=== PATIENT | female | born 1965 | race Caucasian/White ===

== ENCOUNTER 2021-01-06 06:11 | Day surgery (SDC) | payer OTHER, SELFPAY ==
[2020-12-31 09:33] VITALS: BMI 25.4
--- NOTE | 2021-01-03 08:27 | MHC.SHP ---
Pre-Procedural Eval Section A The patient is an INPATIENT: No The History & Physical has been completed within 30 days and I have reviewed it.: Yes Section B Chief Complaint: Cataract Right Eye Allergies: Allergies Allergy/AdvReac Type Severity Reaction Status Date / Time dulaglutide [From Trulicity] Allergy Diarrhea Verified 12/31/20 09:46 meperidine [From Demerol] Allergy Rash Verified 12/31/20 09:46 Plan Diagnosis/Plan: Unchanged I have reviewed the history and physical and performed a pertinent physical examination on my patient. No changes have occurred unless specified.
--- NOTE | 2021-01-03 09:30 | P.CONAN_ITS ---
Documented by User: Shruti Carranza 01/03/21 09:31 HPI - Anesthesia Eval Consult details Narrative: 55yo F for Cataract Extraction IOL Insertion, Right PCP cleared No previous cataract PMFSH Past Medical History Medical History Diabetes TIERNEY (dyspnea on exertion) Elevated cholesterol GERD (gastroesophageal reflux disease) HTN (hypertension) PONV (postoperative nausea and vomiting) Surgical History Surgical History History of Hx of appendectomy Hx of tonsillectomy Hx of tubal ligation Social History Social History Smoking Status: Never smoker Use of substances other than those prescribed or required for medical reasons: No Advance Directives: No Advance Directives Information Provided: No Advance Directives on File: No Meds Allergies Allergy/AdvReac Type Severity Reaction Status Date / Time dulaglutide [From Trulicity] Allergy Diarrhea Verified 12/31/20 09:46 meperidine [From Demerol] Allergy Rash Verified 12/31/20 09:46 Home Medications Medication Instructions Recorded Confirmed Type amlodipine 10 mg PO DAILY 12/31/20 12/31/20 History carvedilol [Coreg] 3.125 mg PO BID 12/31/20 12/31/20 History empagliflozin [Jardiance] 25 mg PO DAILY 12/31/20 12/31/20 History ezetimibe 10 mg PO DAILY 12/31/20 12/31/20 History insulin glargine [Lantus Solostar 32 unit SUBCUT QPM 12/31/20 12/31/20 History U-100 Insulin] lisinopril 40 mg PO DAILY 12/31/20 12/31/20 History omeprazole 20 mg PO DAILY 12/31/20 12/31/20 History rosuvastatin 40 mg PO DAILY 12/31/20 12/31/20 History sitagliptin [Januvia] 100 mg PO DAILY 12/31/20 12/31/20 History Exam Exam Date and Time: January 03, 2021 0930 Height,Weight and Vital Signs: Height 4 ft 11 in Weight 57.153 kg Assessment and Plan Assessment Anesthesia Assessment: Chart Reviewed Documented by User: Gita Gonzalez 01/06/21 07:13 [facility] Past Medical History Medical History Diabetes TIERNEY (dyspnea on exertion) Elevated cholesterol GERD (gastroesophageal reflux disease) HTN (hypertension) PONV (postoperative nausea and vomiting) Surgical History Surgical History History of Hx of appendectomy Hx of tonsillectomy Hx of tubal ligation Social History Social History Smoking Status: Never smoker Use of substances other than those prescribed or required for medical reasons: No Advance Directives: No Advance Directives Information Provided: No Advance Directives on File: No Meds Allergies Allergy/AdvReac Type Severity Reaction Status Date / Time dulaglutide [From Trulicity] Allergy Diarrhea Verified 12/31/20 09:46 meperidine [From Demerol] Allergy Rash Verified 12/31/20 09:46 Home Medications Medication Instructions Recorded Confirmed Type amlodipine 10 mg PO DAILY 12/31/20 12/31/20 History carvedilol [Coreg] 3.125 mg PO BID 12/31/20 12/31/20 History empagliflozin [Jardiance] 25 mg PO DAILY 12/31/20 12/31/20 History ezetimibe 10 mg PO DAILY 12/31/20 12/31/20 History insulin glargine [Lantus Solostar 32 unit SUBCUT QPM 12/31/20 12/31/20 History U-100 Insulin] lisinopril 40 mg PO DAILY 12/31/20 12/31/20 History omeprazole 20 mg PO DAILY 12/31/20 12/31/20 History rosuvastatin 40 mg PO DAILY 12/31/20 12/31/20 History sitagliptin [Januvia] 100 mg PO DAILY 12/31/20 12/31/20 History Exam Airway Mallampati Class: II TM Dist: >3cm Neck ROM: Full Loose/Missing/Broken Teeth: No Heart: RRR Lungs: CTA Assessment and Plan Assessment Anesthesia Assessment: Anesthesia Plan Discussed and Chart Reviewed Final Anesthetic Review NPO: Yes ASA Class: II Final Preanesthetic Review: Meds/Allgs Chart Reviewed, Consent Obtained/Reviewed and Anes Risks/Benef Reviewed Patient Risk: Intermediate Anesthetic Plan Anesthetic Plan: MAC: Disposition: Standard PACU
[2021-01-06 06:24] VITALS: BP 120/43; PULSE 86; RESP 18; TEMP 36.6; O2SAT 98
[2021-01-06 06:25] LABS: Glucose, Whole Blood 263 mg/dL (60-115)
[2021-01-06] MEDS: Tropicamide 1 % Ophth Sol 3 ML BTL 1 DROP EYE-RIGHT ×3 (06:30→06:34)
[2021-01-06] MEDS: Tetracaine HCl/PF 0.5% Oph Sol 4 ML DROPS 1 DROP EYE-RIGHT (06:30)
[2021-01-06] MEDS: Phenylephrine HCL 2.5% Oph SoL 2 ML BOTTLE 1 DROP EYE-RIGHT ×3 (06:31→06:34)
[2021-01-06] MEDS: Lactated Ringers 500 ML 50 ML IV (06:40)
--- NOTE | 2021-01-06 07:53 | HO.PNOPHT ---
Ophthalmology Procedure Procedure Date of Service: 01/06/21 Ophthalmology Viscoelastic: Edie Billingst Dual Pack Pro Ophthalmology Lenses: TECROSELINE [id number] (24) Procedure Notes: PREOPERATIVE DIAGNOSIS: Decreased visual acuity right eye secondary to cataract POSTOPERATIVE DIAGNOSIS: Same PROCEDURE: Right cataract extraction with intraocular lens insertion SURGEON: Jarett Ham M.D. ANESTHESIA: Topical/MAC ESTIMATED BLOOD LOSS: None COMPLICATIONS: None After obtaining informed consent, the patient was brought to the operating room suite and placed in the supine position. After adequate sedation per anesthesia, topical drops of Tetracaine were given to the right eye. The eye was then prepped and draped in the usual sterile fashion. The operating room microscope was then positioned over the operative eye and a lid speculum placed. A paracentesis was created. Viscoelastic was then instilled into the anterior chamber. A three plane incision was then created temporally, utilizing a 2.85 mm keratome. Capsulotomy forceps were then utilized to create a circular tear capsulotomy. Hydrodissection and hydrodelineation were carried out until adequate mobilization of the nucleus occurred. Phacoemulsification was then utilized to remove the dense central nucleus followed by removal of the cortical material utilizing the automated aspiration irrigation unit. Viscoelastic was instilled into the posterior capsular bag followed by placement of a posterior chamber intraocular lens without difficulty. The residual Viscoelastic was then removed utilizing the automated IA machine. The wound was checked and found to be watertight. The patient tolerated the procedure well and the lid speculum was removed. Intracameral injection of Vigamox 0.1 mL followed by a subtenon injection of Kenalog-40 0.2 mL were administered. The patient will be seen in the a.m.
[2021-01-06 07:55] VITALS: BP 118/61; PULSE 77; RESP 16; TEMP 36.6; O2SAT 99
--- NOTE | 2021-01-06 07:56 | HO.POSTANES ---
Post Anesthesia Evaluation Post Anesthesia Evaluation Vital Signs: Vital Signs Temp Pulse Resp BP Pulse Ox 01/06/21 06:24 97.8 F 86 18 120/43 L 98 Anesthesia: Monitored Mental Status: Awake Pain Control: Satisfactory Nausea/Vomiting: None Hydration: Adequate Anesthesia-Related Issues: No Anes. Related Issues
== END 2021-01-06 08:55 | disposition home or self-care (01) ==
PROVIDERS: PCP Physician Assistant Medical; Visit Provider Ophthalmology
PROC: (CPT 66985; principal; 2021-01-06 07:30)
DX: H25.11 Age-related nuclear cataract, right eye (principal); E11.9 Type 2 diabetes mellitus without complications; I10 Essential (primary) hypertension; Z79.4 Long term (current) use of insulin; Z79.899 Other long term (current) drug therapy
CPT/HCPCS: 66984; 82947; J2250; J3010; J3300; V2632

== ENCOUNTER 2021-01-20 06:26 | Day surgery (SDC) | payer OTHER, SELFPAY ==
[2020-12-31 09:36] VITALS: BMI 25.4
--- NOTE | 2021-01-17 15:02 | MHC.SHP ---
Pre-Procedural Eval Section A The patient is an INPATIENT: No The History & Physical has been completed within 30 days and I have reviewed it.: Yes Section B Chief Complaint: Cataract Left Eye Allergies: Allergies Allergy/AdvReac Type Severity Reaction Status Date / Time dulaglutide [From Trulicity] Allergy Diarrhea Verified 12/31/20 09:46 meperidine [From Demerol] Allergy Rash Verified 12/31/20 09:46 Plan I have reviewed the history and physical and performed a pertinent physical examination on my patient. No changes have occurred unless specified.
[2021-01-20 06:34] VITALS: BP 106/34; PULSE 80; RESP 18; TEMP 36.3; O2SAT 97
[2021-01-20] MEDS: Tropicamide 1 % Ophth Sol 3 ML BTL 1 DROP EYE-LEFT ×3 (06:48→06:59)
[2021-01-20] MEDS: Tetracaine HCl/PF 0.5% Oph Sol 4 ML DROPS 1 DROP EYE-LEFT (06:48)
[2021-01-20] MEDS: Phenylephrine HCL 2.5% Oph SoL 2 ML BOTTLE 1 DROP EYE-LEFT ×3 (06:52→06:59)
[2021-01-20 06:55] LABS: Glucose, Whole Blood 173 mg/dL (60-115)
--- NOTE | 2021-01-20 09:18 | HO.PNOPHT ---
Ophthalmology Procedure Procedure Date of Service: 01/20/21 Ophthalmology Viscoelastic: Healjulia Duet Dual Pack Pro Ophthalmology Lenses: TECROSELINE [id number] (24) Procedure Notes: PREOPERATIVE DIAGNOSIS: Decreased visual acuity left eye secondary to cataract POSTOPERATIVE DIAGNOSIS: Same PROCEDURE: Left cataract extraction with intraocular lens insertion SURGEON: Jarett Ham M.D. ANESTHESIA: Topical/MAC ESTIMATED BLOOD LOSS: None COMPLICATIONS: Bent haptic requiring exchange After obtaining informed consent, the patient was brought to the operation room suite and placed in the supine position. After adequate sedation per anesthesia, topical drops of Tetracaine were given to the left eye. The eye was then prepped and draped in the usual sterile fashion. The operating room microscope was then positioned over the operative eye and a lid speculum placed. A paracentesis was created. Viscoelastic was then instilled into the anterior chamber. A three plane incision was then created temporally, utilizing a 2.85 mm keratome. Capsulotomy forceps were then utilized to create a circular tear capsulotomy. Hydrodissection and hydrodelineation were carried out until adequate mobilization of the nucleus occurred. Phacoemulsification was then utilized to remove the dense central nucleus followed by removal of the cortical material utilizing the automated aspiration irrigation unit. Viscoat elastic was instilled into the posterior capsular bag followed by placement of a posterior chamber intraocular lens . A bent traling haptic was noted requiring an IOL exchange. The IOL was foldeed intraocularly and removed . A new IOL was placed without difficulty. The residual Viscoat elastic was then removed utilizing the automated IA machine. The wound was check and found to be watertight. The patient tolerated the procedure well and the lid speculum was removed. Intracameral injection of Vigamox 0.1 mL followed by a subtenon injection of Kenalog-40 0.2 mL were administered. The patient will be seen in the a.m.
[2021-01-20 09:20] VITALS: BP 122/56; PULSE 73; RESP 20; TEMP 36.2; O2SAT 100
== END 2021-01-20 09:50 | disposition home or self-care (01) ==
PROVIDERS: PCP Physician Assistant Medical; Visit Provider Ophthalmology
PROC: (CPT 66985; principal; 2021-01-20 09:00)
DX: H25.12 Age-related nuclear cataract, left eye (principal); H54.7 Unspecified visual loss; T85.29XA Other mechanical complication of intraocular lens, initial encounter; Y84.8 Other medical procedures as the cause of abnormal reaction of the patient, or of later complication, without mention of misadventure at the time of the procedure; Y92.234 Operating room of hospital as the place of occurrence of the external cause; Y77.8 Miscellaneous ophthalmic devices associated with adverse incidents, not elsewhere classified
CPT/HCPCS: 66982; 82947; J2250; J3010; J3300; V2632

== ENCOUNTER 2022-09-28 09:52 | Outpatient (REF) | payer OTHER, SELFPAY ==
[2022-09-28 10:08] VITALS: BP 132/60; PULSE 88; RESP 16; TEMP 36.7; O2SAT 99; BMI 24.2
== END 2022-09-28 09:53 | disposition home or self-care (01) ==
LOC: HO.MS 09:52
PROVIDERS: PCP Physician Assistant Medical; Visit Provider Ophthalmology
PROC: (CPT 66821; principal; 2022-09-28 11:00)
DX: H26.492 Other secondary cataract, left eye (principal); Z96.1 Presence of intraocular lens; Z83.511 Family history of glaucoma; I10 Essential (primary) hypertension; E11.9 Type 2 diabetes mellitus without complications; E78.00 Pure hypercholesterolemia, unspecified; Z79.4 Long term (current) use of insulin; Z79.899 Other long term (current) drug therapy
CPT/HCPCS: 66821

== ENCOUNTER 2022-10-12 09:01 | Outpatient (REF) | payer OTHER, SELFPAY ==
[2022-10-12 09:06] VITALS: BMI 27.1
[2022-10-12 09:08] VITALS: BP 118/58; PULSE 87; RESP 16; TEMP 36.7; O2SAT 97
== END 2022-10-12 09:02 | disposition home or self-care (01) ==
LOC: HO.MS 09:01
PROVIDERS: PCP Physician Assistant Medical; Visit Provider Ophthalmology
PROC: (CPT 66821; principal; 2022-10-12 12:40)
DX: H26.491 Other secondary cataract, right eye (principal); Z83.511 Family history of glaucoma; I10 Essential (primary) hypertension; E78.00 Pure hypercholesterolemia, unspecified; E11.8 Type 2 diabetes mellitus with unspecified complications; Z79.4 Long term (current) use of insulin; Z79.899 Other long term (current) drug therapy; Z88.8 Allergy status to other drugs, medicaments and biological substances
CPT/HCPCS: 66821